=== PATIENT | female | born 1970 | race Caucasian/White ===

== ENCOUNTER 2016-12-05 09:44 | Emergency (ER) | payer BC, OTHER ==
[2016-12-05 10:03] VITALS: BP 124/86
--- NOTE | 2016-12-05 10:14 | EDM.PDOC ---
ED HPI GENERAL MEDICAL PROBLEM - General Chief Complaint: Upper Extremity Injury/Pain Stated Complaint: NEEDLE STICK / WORK COMP Time Seen by Provider: 12/05/16 10:12 Source of Information: Reports: Patient History Limitations: Reports: No Limitations - History of Present Illness INITIAL COMMENTS - FREE TEXT/NARRATIVE: 45 yo female present s/p needlestick at work yesterday. Denies pain. Here for lab work. Onset Date: 12/04/16 Duration: Resolved Prior to Arrival Location: Reports: Upper Extremity, Left Improves with: Reports: None Worsens with: Reports: None Associated Symptoms: Reports: No Other Symptoms - Related Data Allergies Allergy/AdvReac Type Severity Reaction Status Date / Time No Known Allergies Allergy Verified 12/05/16 10:05 Home Meds: Home Meds . [No Known Home Meds] 12/05/16 [History] Past Medical History - Past Surgical History HEENT Surgical History: Reports: Tonsillectomy Musculoskeletal Surgical History: Reports: Shoulder Surgery Social & Family History - Tobacco Use Smoking Status *Q: Never Smoker Second Hand Smoke Exposure: No - Caffeine Use Caffeine Use: Reports: Coffee - Recreational Drug Use Recreational Drug Use: No Review of Systems - Review of Systems Review Of Systems: ROS reveals no pertinent complaints other than HPI. ED EXAM, GENERAL - Physical Exam Exam: See Below Exam Limited By: No Limitations General Appearance: Alert, WD/WN, No Apparent Distress Respiratory/Chest: No Respiratory Distress Cardiovascular: Normal Peripheral Pulses, Regular Rate, Rhythm, No Edema, No Gallop, No JVD, No Murmur, No Rub Extremities: Normal Inspection, Normal Range of Motion, Non-Tender, Normal Capillary Refill, No Pedal Edema Neurological: Alert, Oriented, CN II-XII Intact, Normal Cognition, Normal Gait, No Motor/Sensory Deficits Skin Exam: Warm, Dry, Intact, Normal Color, No Rash Course - Vital Signs Last Recorded V/S: Last Vital Signs Temp 97.6 F 12/05/16 10:02 Pulse 58 L 12/05/16 10:02 Resp 16 12/05/16 10:02 BP 124/86 12/05/16 10:02 Pulse Ox 99 12/05/16 10:02 - Orders/Labs/Meds Orders: Active Orders 24 hr Category Date Time Status CBC WITH AUTO DIFF [HEME] Stat Lab 12/05/16 10:21 Received CMP [COMPREHENSIVE METABOLIC PN,CMP] [CHEM] Stat Lab 12/05/16 10:21 Received HEPATITIS B SURFACE ANTIGEN [REF] Stat Lab 12/05/16 10:10 Ordered HEPATITIS C AB [REF] Stat Lab 12/05/16 10:10 Ordered HIV RAPID [REF] Stat Lab 12/05/16 10:10 Ordered Departure - Departure Time of Disposition: 10:26 Disposition: Home, Self-Care 01 Condition: Good Clinical Impression: Accidental needlestick injury with exposure to body fluid - Discharge Information Forms: ED Department Discharge Additional Instructions: Your lab results should return by middle next week. Follow up with your PCP. Return for any worsening symptoms - My Orders Last 24 Hours: My Active Orders 12/05/16 10:10 HEPATITIS B SURFACE ANTIGEN [REF] Stat HEPATITIS C AB [REF] Stat HIV RAPID [REF] Stat 12/05/16 10:21 CBC WITH AUTO DIFF [HEME] Stat CMP [COMPREHENSIVE METABOLIC PN,CMP] [CHEM] Stat - Assessment/Plan Last 24 Hours: My Active Orders 12/05/16 10:10 HEPATITIS B SURFACE ANTIGEN [REF] Stat HEPATITIS C AB [REF] Stat HIV RAPID [REF] Stat 12/05/16 10:21 CBC WITH AUTO DIFF [HEME] Stat CMP [COMPREHENSIVE METABOLIC PN,CMP] [CHEM] Stat
[2016-12-05 10:57] LABS: CHLORIDE,CL 108 mmol/L (101-111); SODIUM,NA 142 mmol/L (135-145)
== END 2016-12-05 10:31 | disposition home or self-care (01) ==
LOC: DL.ED 09:44
DX: Z77.21 Contact with and (suspected) exposure to potentially hazardous body fluids (principal); Z98.890 Other specified postprocedural states; Y99.0 Civilian activity done for income or pay; W45.8XXA Other foreign body or object entering through skin, initial encounter
CPT/HCPCS: 36415; 80053; 85025; 86703; 86706; 86803; 99283